=== PATIENT | male | born 1990 | race Asian ===

== ENCOUNTER 2019-03-16 09:07 | Day surgery (SDC) | payer OTHER ==
[2019-03-16] MEDS: CEFAZOLIN 2 GM/50 ML (PMX) 50 ML IVPB (09:00)
[~2019-03-16 09:07] MED LIST: CEFAZOLIN (20 MG/ML) IV SYG IV*; CEFAZOLIN 1 GM INJ; DEXAMETHASONE 4 MG/ML 5 ML INJ; FENTAnyl 50 MCG/ML VIAL; LACTATED RINGER'S 1,000 ML IV; LIDOCAINE 2% (SDV) 5 ML INJ; LIDOCAINE 4% CR TOP; MIDAZOLAM 1 MG/ML 2 ML INJ; ONDANSETRON 4 MG INJ; PROPOFOL 20 ML
[2019-03-16] MEDS: POLYMYXIN/BACITRACIN 1L IRRIG (10:49)
[2019-03-16] MEDS ORDERED: HYDROmorphONE 1 MG/5 ML IV SYRINGE IV ×2 (11:00)
[2019-03-16] MEDS: HYDROmorphONE 1 MG/5 ML IV SYRINGE IV (11:50)
[2019-03-16] MEDS: OXYCODONE/ACETAMINOPHEN (5/325) TAB PO (13:20)
== END 2019-03-16 13:43 | disposition home or self-care (01) ==
LOC: SDS 09:07
DX: S82.51XA Displaced fracture of medial malleolus of right tibia, initial encounter for closed fracture (principal); F12.90 Cannabis use, unspecified, uncomplicated; Z87.891 Personal history of nicotine dependence; W17.89XA Other fall from one level to another, initial encounter; Y93.89 Activity, other specified; Y92.89 Other specified places as the place of occurrence of the external cause; Y99.8 Other external cause status
CPT/HCPCS: 27766; 73610-RT

== ENCOUNTER 2019-03-20 22:01 | Inpatient (IN) | payer OTHER ==
[2019-03-20] MEDS ORDERED: HYDROCODONE/APAP (5/325) TAB PO (23:30)
[2019-03-20] MEDS ORDERED: NACL 0.9% 3 ML SYG IV (23:30)
[2019-03-21] MEDS ORDERED: ONDANSETRON INJ 8 MG in DEXTROSE 5% 50 ML IV
[2019-03-21] MEDS: ONDANSETRON INJ 8 MG in SOD CHLORIDE 0.9% 50 ML IV ×2 (00:30→11:04)
[2019-03-21] MEDS: DEXTROSE 5%-0.45% NACL 1,000 ML IV ×4 (00:30→18:29)
[2019-03-21] MEDS: KETOROLAC 30 MG INJ IV ×3 (00:49→17:59)
[2019-03-21 05:37] LABS: ADD MAN DIFF? NO
[2019-03-21 05:45] LABS: BASOPHILS % 0.1 % (0.0-2.0); HEMATOCRIT 37.6 % (42.0-52.0); HEMOGLOBIN 12.9 g/dl (14.0-18.0); LYMPHOCYTES # 1.8 10^3/ul (0.8-2.9); LYMPHOCYTES % 11.8 % (15.0-51.0); MEAN CORPUSCULAR HGB CONC 34.3 g/dl (32.0-37.0); MEAN CORPUSCULAR VOLUME 84.5 fl (82.0-101.0); MONOCYTE # 1.3 10^3/ul (0.3-0.9); MONOCYTES % 8.8 % (0.0-11.0); NEUTROPHILS % 78.8 % (39.0-77.0); PLATELET COUNT 400 10^3/UL (140-415); RED BLOOD COUNT 4.45 10^6/ul (4.70-6.10); RED CELL DISTRIBUTION WIDTH 11.9 % (11.5-14.5)
[2019-03-21 05:45] LABS: WHITE BLOOD COUNT 15.2 10^3/ul (4.8-10.8)
[2019-03-21 06:12] LABS: ALANINE AMINOTRANSFERASE 49 IU/L (13-69); ALBUMIN 3.9 g/dl (3.3-4.9); ALKALINE PHOSPHATASE 82 IU/L (42-121); ANION GAP 10 (5-13); ASPARTATE AMINO TRANSFERASE 29 IU/L (15-46); BILIRUBIN,INDIRECT 0.6 mg/dl (0-1.1); BILIRUBIN,TOTAL 0.6 mg/dl (0.2-1.3); BLOOD UREA NITROGEN 19 mg/dl (7-20); CALCIUM 9.3 mg/dl (8.4-10.2); CARBON DIOXIDE 26 mmol/L (21-31); CHLORIDE 104 mmol/L (97-110); CHOL/HDL RATIO 4.6 RATIO; CHOLESTEROL 150 mg/dl (100-200); CREATININE 0.76 mg/dl (0.61-1.24); Estimated GFR > 60 mL/min (>60); GLUCOSE 154 mg/dl (70-220); HDL CHOLESTEROL 32 mg/dl (28-63); LDL CHOLESTEROL,CALCULATED 104 mg/dl; MAGNESIUM 1.8 mg/dl (1.7-2.5); PHOSPHORUS 3.1 mg/dl (2.5-4.9); POTASSIUM 3.4 mmol/L (3.5-5.1); SODIUM 140 mmol/L (135-144); TOTAL PROTEIN 6.9 g/dl (6.1-8.1); TRIGLYCERIDES 69 mg/dl (0-149)
[2019-03-21 06:45] LABS: THYROID STIMULATING HORMONE 0.078 MIU/L (0.465-4.680)
[2019-03-21 07:02] LABS: HEMOGLOBIN A1C 5.6 % (0-5.9)
[2019-03-21] MEDS: HYDROCODONE/APAP (5/325) TAB PO ×3 (07:15→21:22)
[2019-03-21] MEDS: FAMOTIDINE 20 MG INJ IV ×2 (09:38→20:29)
[2019-03-21] MEDS: POTASSIUM CHLORIDE (SR) 20 MEQ TAB PO ×2 (15:20→18:01)
[2019-03-21] MEDS ORDERED: hydrOXYzine PAMOATE 25 MG CAP PO (17:00)
[2019-03-21] MEDS: ZOLPIDEM 5 MG TAB PO ×2 (20:29→22:34)
[2019-03-22] MEDS: ONDANSETRON INJ 8 MG in SOD CHLORIDE 0.9% 50 ML IV (01:37)
[2019-03-22] MEDS: DEXTROSE 5%-0.45% NACL 1,000 ML IV ×2 (01:56→16:16)
[2019-03-22] MEDS: ALPRAZOLAM 0.25 MG TAB PO (02:55)
[2019-03-22 05:45] LABS: ADD MAN DIFF? NO
[2019-03-22 05:52] LABS: WHITE BLOOD COUNT 12.5 10^3/ul (4.8-10.8)
[2019-03-22 05:52] LABS: BASOPHILS % 0.2 % (0.0-2.0); EOSINOPHILS % 0.1 % (0.0-7.0); HEMATOCRIT 36.3 % (42.0-52.0); HEMOGLOBIN 12.3 g/dl (14.0-18.0); LYMPHOCYTES # 2.3 10^3/ul (0.8-2.9); LYMPHOCYTES % 18.7 % (15.0-51.0); MEAN CORPUSCULAR HEMOGLOBIN 29.1 pg (29.0-33.0); MEAN CORPUSCULAR HGB CONC 33.9 g/dl (32.0-37.0); MEAN CORPUSCULAR VOLUME 85.8 fl (82.0-101.0); MONOCYTE # 1.2 10^3/ul (0.3-0.9); MONOCYTES % 9.4 % (0.0-11.0); NEUTROPHIL # 8.9 10^3/ul (1.6-7.5); PLATELET COUNT 350 10^3/UL (140-415); RED BLOOD COUNT 4.23 10^6/ul (4.70-6.10); RED CELL DISTRIBUTION WIDTH 11.9 % (11.5-14.5)
[2019-03-22 06:08] LABS: ALANINE AMINOTRANSFERASE 36 IU/L (13-69); ALBUMIN 3.5 g/dl (3.3-4.9); ALBUMIN/GLOBULIN RATIO 1.29; ALKALINE PHOSPHATASE 71 IU/L (42-121); ANION GAP 7 (5-13); ASPARTATE AMINO TRANSFERASE 18 IU/L (15-46); BILIRUBIN,INDIRECT 0.6 mg/dl (0-1.1); BILIRUBIN,TOTAL 0.6 mg/dl (0.2-1.3); BLOOD UREA NITROGEN 10 mg/dl (7-20); CALCIUM 9.3 mg/dl (8.4-10.2); CARBON DIOXIDE 24 mmol/L (21-31); CHLORIDE 106 mmol/L (97-110); CREATININE 0.74 mg/dl (0.61-1.24); Estimated GFR > 60 mL/min (>60); GLUCOSE 128 mg/dl (70-220); MAGNESIUM 1.8 mg/dl (1.7-2.5); SODIUM 137 mmol/L (135-144); TOTAL PROTEIN 6.2 g/dl (6.1-8.1)
[2019-03-22 06:24] LABS: FREE THYROXINE INDEX (Calc) 2.61 ug/ml (0.65-3.89); T3 UPTAKE 35.7 % (23.5-40.5); T4 (THYROXINE) 7.3 ug/dl (5.5-11.0)
[2019-03-22] MEDS: HYDROCODONE/APAP (5/325) TAB PO ×2 (07:51→14:04)
[2019-03-22] MEDS: FAMOTIDINE 20 MG INJ IV (08:44)
[2019-03-22] MEDS: ONDANSETRON 4 MG INJ IV ×2 (16:16→21:02)
[2019-03-22] MEDS: METOCLOPRAMIDE 10 MG INJ IV ×2 (18:37→23:58)
[2019-03-22] MEDS: METHADONE (1 MG/ML 5 ML PO UD SYG) PO ×2 (19:58→23:59)
[2019-03-22] MEDS ORDERED: METHADONE (1 MG/ML 5 ML PO UD SYG) PO (22:00)
[2019-03-23 00:15] LABS: AMPHETAMINE/METHAMPHETAMINE Negative (NEGATIVE); BARBITURATES Negative (NEGATIVE); BENZODIAZEPINES Positive (NEGATIVE); CANNABINOIDS Positive (NEGATIVE); COCAINE Negative (NEGATIVE)
[2019-03-23 00:16] LABS: OPIATES Positive (NEGATIVE)
[2019-03-23] MEDS: ONDANSETRON 4 MG INJ IV ×3 (01:01→11:00)
[2019-03-23] MEDS: DEXTROSE 5%-0.45% NACL 1,000 ML IV ×4 (03:03→17:40)
[2019-03-23 04:50] LABS: ADD MAN DIFF? NO
[2019-03-23 04:51] LABS: BASOPHILS % 0.1 % (0.0-2.0); HEMATOCRIT 39.5 % (42.0-52.0); HEMOGLOBIN 13.4 g/dl (14.0-18.0); LYMPHOCYTES # 1.9 10^3/ul (0.8-2.9); LYMPHOCYTES % 13.7 % (15.0-51.0); MEAN CORPUSCULAR HEMOGLOBIN 29.1 pg (29.0-33.0); MEAN CORPUSCULAR HGB CONC 33.9 g/dl (32.0-37.0); MEAN CORPUSCULAR VOLUME 85.9 fl (82.0-101.0); MEAN PLATELET VOLUME 9.7 fl (7.4-10.4); MONOCYTES % 7.2 % (0.0-11.0); NEUTROPHIL # 11.1 10^3/ul (1.6-7.5); NEUTROPHILS % 78.6 % (39.0-77.0); PLATELET COUNT 398 10^3/UL (140-415); RED CELL DISTRIBUTION WIDTH 11.7 % (11.5-14.5)
[2019-03-23 04:51] LABS: WHITE BLOOD COUNT 14.1 10^3/ul (4.8-10.8)
[2019-03-23 05:12] LABS: ALANINE AMINOTRANSFERASE 45 IU/L (13-69); ALBUMIN 3.8 g/dl (3.3-4.9); ALBUMIN/GLOBULIN RATIO 1.18; ALKALINE PHOSPHATASE 80 IU/L (42-121); ANION GAP 8 (5-13); ASPARTATE AMINO TRANSFERASE 32 IU/L (15-46); BILIRUBIN,INDIRECT 0.7 mg/dl (0-1.1); BILIRUBIN,TOTAL 0.7 mg/dl (0.2-1.3); BLOOD UREA NITROGEN 15 mg/dl (7-20); CALCIUM 9.3 mg/dl (8.4-10.2); CARBON DIOXIDE 27 mmol/L (21-31); CHLORIDE 102 mmol/L (97-110); Estimated GFR > 60 mL/min (>60); GLUCOSE 138 mg/dl (70-220); POTASSIUM 3.4 mmol/L (3.5-5.1); SODIUM 137 mmol/L (135-144)
[2019-03-23] MEDS: PANTOPRAZOLE 40 MG INJ IV (05:42)
[2019-03-23] MEDS: METOCLOPRAMIDE 10 MG INJ IV ×4 (05:42→23:23)
[2019-03-23] MEDS: METHADONE (1 MG/ML 5 ML PO UD SYG) PO ×2 (06:00→22:22)
[2019-03-23] MEDS: morphine 2 MG INJ IV ×4 (06:26→15:00)
[2019-03-23] MEDS: ACETAMINOPHEN 325 MG TAB PO (07:56)
[2019-03-23 11:17] LABS: CREATINE KINASE 44 IU/L (23-200)
[2019-03-23] MEDS: POTASSIUM CHLORIDE 100 ML IVPB ×2 (13:18→15:58)
[2019-03-23] MEDS: LORAZEPAM 2 MG INJ IV ×2 (17:49→18:51)
[2019-03-23] MEDS: CARISOPRODOL 350 MG TAB PO (20:41)
[2019-03-23] MEDS ORDERED: LORAZEPAM 2 MG INJ IV (23:30)
[2019-03-24] MEDS: POTASSIUM CHLORIDE (SR) 20 MEQ TAB PO (00:43)
[2019-03-24] MEDS: DEXTROSE 5%-0.45% NACL 500 ML BAG IV (01:50)
[2019-03-24] MEDS: DEXTROSE 5%-0.45% NACL 1,000 ML IV ×2 (02:18→12:10)
[2019-03-24] MEDS: METOCLOPRAMIDE 10 MG INJ IV ×2 (05:38→12:10)
[2019-03-24] MEDS: PANTOPRAZOLE 40 MG INJ IV (05:38)
[2019-03-24 10:43] LABS: ADD MAN DIFF? NO
[2019-03-24 10:46] LABS: BASOPHILS % 0.4 % (0.0-2.0); EOSINOPHILS # 0.1 10^3/ul (0.0-0.5); EOSINOPHILS % 0.8 % (0.0-7.0); HEMATOCRIT 39.8 % (42.0-52.0); HEMOGLOBIN 13.5 g/dl (14.0-18.0); LYMPHOCYTES # 2.7 10^3/ul (0.8-2.9); LYMPHOCYTES % 26.7 % (15.0-51.0); MEAN CORPUSCULAR HEMOGLOBIN 29.5 pg (29.0-33.0); MEAN CORPUSCULAR HGB CONC 33.9 g/dl (32.0-37.0); MEAN CORPUSCULAR VOLUME 87.1 fl (82.0-101.0); MEAN PLATELET VOLUME 9.6 fl (7.4-10.4); MONOCYTES % 9.9 % (0.0-11.0); NEUTROPHIL # 6.3 10^3/ul (1.6-7.5); NEUTROPHILS % 61.7 % (39.0-77.0); PLATELET COUNT 372 10^3/UL (140-415); RED BLOOD COUNT 4.57 10^6/ul (4.70-6.10); RED CELL DISTRIBUTION WIDTH 11.8 % (11.5-14.5)
[2019-03-24 10:46] LABS: WHITE BLOOD COUNT 10.2 10^3/ul (4.8-10.8)
[2019-03-24 11:15] LABS: LIPASE 246 U/L (23-300)
[2019-03-24] MEDS: ACETAMINOPHEN 325 MG TAB PO ×2 (17:05→23:10)
[2019-03-24] MEDS: ONDANSETRON 4 MG INJ IV (21:09)
[2019-03-24] MEDS: METHADONE (1 MG/ML 5 ML PO UD SYG) PO (21:44)
[2019-03-25 00:08] LABS: ADD UMIC NO; UR ASCORBIC ACID NEGATIVE (NEGATIVE); UR BILIRUBIN (Dip) NEGATIVE (NEGATIVE); UR BLOOD (Dip) NEGATIVE (NEGATIVE); UR CLARITY CLEAR (CLEAR); UR COLOR YELLOW (YELLOW); UR GLUCOSE (Dip) NEGATIVE (NEGATIVE); UR KETONES (Dip) NEGATIVE (NEGATIVE); UR LEUKOCYTE ESTERASE (Dip) NEGATIVE Leu/ul (NEGATIVE); UR NITRITE (Dip) NEGATIVE (NEGATIVE); UR SPECIFIC GRAVITY (Dip) 1.011 (1.003-1.030); UR TOTAL PROTEIN (Dip) NEGATIVE (NEGATIVE); UR UROBILINOGEN (Dip) 2+ mg/dL (NEGATIVE)
[2019-03-25] MEDS: PANTOPRAZOLE 40 MG INJ IV (06:46)
[2019-03-25 08:24] LABS: ADD MAN DIFF? NO
[2019-03-25 08:54] LABS: LIPASE 238 U/L (23-300)
[2019-03-25 09:11] LABS: ANION GAP 8 (5-13); BLOOD UREA NITROGEN 12 mg/dl (7-20); CALCIUM 9.2 mg/dl (8.4-10.2); CARBON DIOXIDE 25 mmol/L (21-31); CHLORIDE 103 mmol/L (97-110); CREATININE 0.93 mg/dl (0.61-1.24); Estimated GFR > 60 mL/min (>60); GLUCOSE 101 mg/dl (70-220); POTASSIUM 3.4 mmol/L (3.5-5.1); SODIUM 136 mmol/L (135-144)
[2019-03-25 11:18] LABS: WHITE BLOOD COUNT 8.2 10^3/ul (4.8-10.8)
[2019-03-25 11:18] LABS: BASOPHILS % 0.5 % (0.0-2.0); EOSINOPHILS # 0.2 10^3/ul (0.0-0.5); EOSINOPHILS % 2.5 % (0.0-7.0); HEMATOCRIT 42.1 % (42.0-52.0); HEMOGLOBIN 14.1 g/dl (14.0-18.0); LYMPHOCYTES # 2.9 10^3/ul (0.8-2.9); LYMPHOCYTES % 34.6 % (15.0-51.0); MEAN CORPUSCULAR HEMOGLOBIN 29.3 pg (29.0-33.0); MEAN CORPUSCULAR HGB CONC 33.5 g/dl (32.0-37.0); MEAN CORPUSCULAR VOLUME 87.5 fl (82.0-101.0); MEAN PLATELET VOLUME 9.9 fl (7.4-10.4); MONOCYTE # 0.8 10^3/ul (0.3-0.9); MONOCYTES % 9.8 % (0.0-11.0); NEUTROPHIL # 4.3 10^3/ul (1.6-7.5); NEUTROPHILS % 52.1 % (39.0-77.0); PLATELET COUNT 372 10^3/UL (140-415); RED BLOOD COUNT 4.81 10^6/ul (4.70-6.10)
[2019-03-26] MEDS ORDERED: PANTOPRAZOLE (EC) 40 MG TAB PO (06:00)
== END 2019-03-25 12:40 | disposition home or self-care (01) | DRG 392 ==
LOC: 2NE 22:01 → MS3 03-21 19:15
DX: R11.2 Nausea with vomiting, unspecified (principal); F11.23 Opioid dependence with withdrawal; R65.10 Systemic inflammatory response syndrome (SIRS) of non-infectious origin without acute organ dysfunction; F11.10 Opioid abuse, uncomplicated; F10.10 Alcohol abuse, uncomplicated; F41.9 Anxiety disorder, unspecified; Z72.89 Other problems related to lifestyle; R94.6 Abnormal results of thyroid function studies
CPT/HCPCS: 71045; 74018; 80048; 80053; 80061; 80307; 81003; 82550; 83036; 83690; 83735; 84100; 84436; 84443; 84479; 85025; 87040-91; 93306; 97161